=== PATIENT | male | born 1990 | race Caucasian/White ===

== ENCOUNTER 2021-11-24 07:33 | Inpatient (IN) ==
--- NOTE | 2021-11-10 11:08 | Anesthesiology Consultation ---
Date of Service November 10, 2021 Assessment & Plan (1) Encounter for pre-operative examination: COVID screening: Per assessment on 11/10: No known COVID-19 positive contacts or current COVID-19 related symptoms. Travel screen negative. Surgeon arranging preop COVID testing (Advised to go 11/22; location per surgeon). Awaiting results. Chart Review Chart Review: Acceptable Risk for Surgery and Patient seen in Pre Admission Testing Teaching & Discussion Pre-Anesthesia Teaching/Discussion Notes: Instructed NPO after midnight before surgery,except medications with 15 cc of water. Medication instructions provided according to the PAT guidelines. History Surgery Operation Date: 11/24/21 12:05 Proposed Procedures p C5-C7 Anterior Cervical Discectomy and Fusion, Possible C6 Corpectomy, Spinal Cord Monitoring - Talib Lua DO Height/Weight Height: 6 ft 2 in Weight: 86.3 kg Allergies Allergy/AdvReac Type Severity Reaction Status Date / Time No Known Allergies Allergy Verified 11/07/21 14:24 Medications Home Medications Medication Instructions Recorded Confirmed Last Taken No Known Home Medications 11/07/21 11/07/21 Unknown Past Medical History Medical History Degenerative cervical disc History of COVID-19 Dx 01/2021- no taste/smell, fatigue, weight loss > resolved [place]-Schlatter's disease Affected ankles/knees as child, did PT - no current problems Exercise / Class Metabolic Activity II 4-5 Yardwork/Stairs/Walk up hill Past Family History Family History Grandmother (Maternal) Crohn's disease Grandfather (Paternal) Crohn's disease Past Surgical History Surgical History History of colonoscopy Hx of inguinal hernia repair Age ~2 Hx of sinus surgery d/t polyps/blockage at teenager Hx of tonsillectomy Hx of wisdom tooth extraction Past Anesthesia History No Hx of Anesthesia Complications and No Family Hx of Anesthesia Complications History of PONV No Hx of PONV and No Hx of Motion Sickness Social History Smoking Status: Current every day smoker tobacco type: cigarettes Smoking cigarettes per day: 0.5pk/day Do You Dip or Chew Tobacco: No Hx Alcohol Use: Yes Alcohol type: beer alcohol intake frequency: 0-2 drinks per day (2 beers/days ) Hx Substance Use: No substance use type: does not use Review of Systems Patient denies chest pain, shortness of breath, dyspnea on exertion, fever, chills, cough, wheezing, palpitations. Physical Exam Vital Signs VITALS BP 146/98 P 66 TEMP 98.4 SP02 99%RA RESP 16 PHYSICAL Mildly decreased cervical extension range of motion. Full TMJ range of motion. TMD 4 finger breaths Mallampati Score 1 Dentition: intact Lungs: clear throughout to auscultation Cardiac: regular rate and rhythm, no murmurs noted Spine: normal Carotid arteries: negative bruit Extremities: no edema Lab Results Anesthesia Preop Results Results Anesthesia Widget: WBC 7.09 K/ul (4.8-10.8) 11/10/21 Hgb 15.0 g/dl (14.0-18.0) 11/10/21 Hct 44.3 % (40.1-51.0) 11/10/21 Plt 196 K/uL (130-400) 11/10/21 Na 139 mmol/L (136-145) 11/10/21 K 4.6 mmol/L (3.5-5.1) 11/10/21 Cl 106 mmol/L (98-107) 11/10/21 CO2 28 mmol/L (21-32) 11/10/21 BUN 11 mg/dl (6-23) 11/10/21 Creat 0.94 mg/dl (0.6-1.4) 11/10/21 Glucose Level 96 mg/dl (70-99(Fasting)) 11/10/21 PT 10.2 Seconds (9.0-12.0) 11/10/21 PTT 26.8 Seconds (21.0-31.0) 11/10/21 INR 1.0 (0.9-1.1) 11/10/21 Urine Color Yellow 11/10/21 Urine Appearance Clear (Clear) 11/10/21 Urine pH 5.5 (4.5-7.5) 11/10/21 Urine Specific [place] 1.014 (1.000-1.030) 11/10/21 Urine Protein Negative (Negative) 11/10/21 Urine Glucose (UA) Negative (Negative) 11/10/21 Urine Ketones Negative (Negative) 11/10/21 Urine Blood Negative (Negative) 11/10/21 Urine Nitrite Negative (Negative) 11/10/21 Urine Bilirubin Negative (Negative) 11/10/21 Urine Urobilinogen Negative (Negative) 11/10/21 Urine Leukocyte Esterase Negative (Negative) 11/10/21 Blood Type O Positive 11/10/21 Antibody Screen NEGATIVE 11/10/21 Testing Electrocardiogram Date: 11/10/21 SB at 54bpm. Otherwise normal ECG. Chest X-Ray Date: 11/10/21 Findings: + NAD
[~2021-11-24 07:33] MED LIST: ACETAMINOPHEN 500 MG TAB PO SCH; CeleBREX 200 MG CAP PO SCH; GABAPENTIN 900 MG DOSE PO SCH; LR 15ML/HR IV SCH; ceFAZolin 2000MG 2,000 MG/15 ML SYR IV SCH
[2021-11-24] MEDS ORDERED: fentaNYL citrate 100 MCG/2 ML VIAL ONE ×2 (08:40→12:20)
[2021-11-24] MEDS ORDERED: KETAMINE 50 MG/5 ML SYRINGE ONE (08:40)
[2021-11-24] MEDS ORDERED: MIDAZOLAM HCL 1 MG/ML 2ML VIAL ONE (08:40)
--- NOTE | 2021-11-24 09:04 | History & Physical Bridge Note ---
Date of Service November 24, 2021 History & Physical Bridge Note I have examined the patient, reviewed the History & Physical and in the interval since the performance of the History & Physical I have noted the following changes of clinical significance: no changes noted
--- NOTE | 2021-11-24 09:05 | History & Physical Report ---
Date of Service November 24, 2021 Assessment & Plan (1) Herniation of cervical intervertebral disc with radiculopathy: Plan: C5-C7 anterior cervical discectomy with fusion, possible C6 corpectomy History of Present Illness Chief Complaint: Neck and arm pain Primary Care Provider: NO PCP This is a 31-year-old male who presents with worsening neck and arm symptoms after failed course of nonoperative care is here for surgical invention. Allergies Allergy/AdvReac Type Severity Reaction Status Date / Time No Known Allergies Allergy Verified 11/24/21 08:09 Home Medications Medication Instructions Recorded Confirmed Type No Known Home Medications 11/07/21 11/24/21 History Past Med/Surg History Medical History Degenerative cervical disc History of COVID-19 Dx 01/2021- no taste/smell, fatigue, weight loss > resolved [place]-Schlatter's disease Affected ankles/knees as child, did PT - no current problems Surgical History History of colonoscopy Hx of inguinal hernia repair Age ~2 Hx of sinus surgery d/t polyps/blockage at teenager Hx of tonsillectomy Hx of wisdom tooth extraction Family History Grandmother (Maternal) Crohn's disease Grandfather (Paternal) Crohn's disease Social History Smoking Status: Current every day smoker Cigarettes Per Day: 0.5pk/day; Second Hand Exposure: No; Do You Dip or Chew Tobacco: No; Tobacco Cessation Education Requested by Patient: No Hx Alcohol Use: Yes Alcohol type: beer Hx Substance Use: No Preferred Language: [place] Communication Ability: Effective Celluloid Trimmer Required: No Beliefs That Will Affect Care: None Current Living Situation: Spouse Other Information That Helps Us Care for You: No Feels Safe at Home: Yes Safety Concerns: Feels Safe At This Time Assistive Devices: Glasses Physical Exam Physical Exam: Patient is alert and oriented Heart regular rhythm Lungs clear Results & Data Results & Data ([facility]) Vital Signs (Past 12 Hours) Vital Signs Temp Pulse Resp BP Pulse Ox O2 Del Method 11/24/21 08:08 36.3 C L 57 L 16 141/98 H 100 Room Air
[2021-11-24] MEDS ORDERED: ceFAZolin 330 MG/ML 1 GM VIAL ONE (09:28)
[2021-11-24] MEDS ORDERED: BUPIVACAINE/EPINEPHRINE 0.25% 1:200,000 30 ML VIAL ONE (09:28)
[2021-11-24] MEDS ORDERED: PROPOFOL IV EMULSION 10 MG/ML 20 ML VIAL IV ONE (09:30)
[2021-11-24] MEDS ORDERED: DEXAMETHASONE SOD INJ 4 MG/ML VIAL ONE (09:30)
[2021-11-24] MEDS ORDERED: ONDANSETRON INJ 2 MG/ML 2 ML VIAL ONE (09:30)
[2021-11-24] MEDS ORDERED: SUCCINYLCHOLINE CHLORIDE 20 MG/ML 10 ML VIAL IV ONE (09:30)
[2021-11-24] MEDS ORDERED: HYDROmorphone INJ 2 MG/ML SYR/VIAL ONE (10:05)
[2021-11-24] MEDS ORDERED: FLOSEAL HEMOSTATIC MATRIX 10ML TOP ONE (10:23)
--- NOTE | 2021-11-24 11:29 | Operative Report ---
Post Operative Report Pre & Post Diagnosis Operation Date: 11/24/21 09:05 Pre-Op Diagnosis: Cervical disc herniation with stenosis and radiculopathy Post-Op Diagnosis: Same I identified the patient and participated in the time-out.: Yes Procedure Operation Date: 11/24/21 09:05 Actual Procedures #1 anterior cervical corpectomy with bilateral foraminotomies C6. #2 anterior cervical arthrodesis C5-C7. #3 placement of 23 mm peek cage C5-C7. #4 placement locally harvested morselized autograft combined with I factor interbody cage. #5 application of lopez plate and screws from C5-C7. Surgeon Talib Lua, DO Judicial Registrar Mundo Moran Estimated Blood Loss 20 Findings Consistent with Post-Op Diagnosis Specimens None Indications This is a 31-year-old male who presents with evidence of significant cervical radiculopathy. Failing course of nonoperative care is here for surgical intervention. Description of Procedure Patient was met with identified informed consent obtained. Patient was then taken to the operative suite underwent ablation placed in the supine position the Martín table with head Akers hogshead opener. All bony prominences well- padded eyes inspected to ensure no external pressure placed upon them. This point the anterior cervical spine was prepped and draped in the normal sterile fashion. The assistance of fluoroscopy identified the C6 vertebral body. A transverse incision was placed along the right anterior aspect of the cervical spine overlying his region. Blunt dissection with the assistance of Bovie cautery was performed down to and exposing the anterior cervical spine from C5- C7. Self-retaining retractors placed. I then performed a complete discectomy of C5-C6 out to the uncovertebral joints bilaterally followed by C6-C7. [place] distracting pins were placed in C5 and C7 to distract across the C6 vertebral body. A complete corpectomy was then performed including removal of all posterior annular fibers longitudinal ligament and bilateral foraminotomies performed. After complete decompression a 23 mm peek cage filled with locally harvested morselized autograft and I factor was tapped in position. Distracting apparatus was removed and a lopez plate and screws applied with the assistance of fluoroscopy. The incision was then copiously irrigated explored to ensure no damage to surrounding structures remaining bleeding. 10 round LOUISE drain inserted. The incision then closed with 2 Vicryl in the fascia and a 4 Monocryl for fascial closure. Steri-Strip sterile dressings placed. Patient waken taken back in stable condition. Please note spinal cord monitoring was utilized at the procedure no changes noted. Lastly Mundo Moran was present out the entire surgeon while the patient positioning complex portions of the surgery and final skin closure. I attest to the content of the Intraoperative Record and any orders documented therein. Any exceptions are noted below.
[2021-11-24] MEDS ORDERED: ATROPINE SULFATE 0.1 MG/ML 10ML SYR IV PRN (12:37)
[2021-11-24] MEDS ORDERED: ePHEDrine sulfate 50 MG/ML AMP IV PRN (12:37)
[2021-11-24] MEDS ORDERED: HYDROmorphone INJ 2 MG/ML SYR/VIAL IV PRN (12:37)
[2021-11-24] MEDS ORDERED: PROMETHAZINE HCL 6.25 MG in SODIUM CHLORIDE 0.9% 50 ML IV PRN (12:37)
[2021-11-24] MEDS ORDERED: ONDANSETRON INJ 2 MG/ML 2 ML VIAL IV PRN ×2 (12:37→13:26)
[2021-11-24] MEDS ORDERED: fentaNYL citrate 100 MCG/2 ML VIAL IV PRN (12:37)
[2021-11-24] MEDS ORDERED: ACETAMINOPHEN 500 MG TAB PO PRN (13:26)
[2021-11-24] MEDS ORDERED: SOD PHOSPHATE/SOD BIPHOSPHATE ENEMA 132 ML BTL PR PRN (13:26)
[2021-11-24] MEDS ORDERED: hydrOXYzine HCl 25 MG TAB PO PRN (13:26)
[2021-11-24] MEDS ORDERED: ONDANSETRON 4 MG OD TAB PO PRN (13:26)
[2021-11-24] MEDS ORDERED: LORazepam 0.5 MG in SYRINGE 0.25 ML IV PRN ×2 (13:26→13:46)
[2021-11-24] MEDS ORDERED: FAMOTIDINE 20 MG TAB PO PRN (13:26)
[2021-11-24] MEDS ORDERED: bisacodyL 10 MG SUPP PR PRN (13:26)
[2021-11-24] MEDS ORDERED: PROMETHAZINE HCL 12.5 MG in SODIUM CHLORIDE 0.9% 50 ML IV PRN (13:26)
[2021-11-24] MEDS ORDERED: ACETAMINOPHEN 1,000 MG/100 ML VIAL IV PRN (13:26)
[2021-11-24] MEDS ORDERED: NALOXONE HCL 0.4 MG/1 ML VIAL/CARP IV PRN (13:26)
[2021-11-24] MEDS ORDERED: MAGNESIUM HYDROXIDE SUSP 30 ML UDC PO PRN (13:26)
[2021-11-24] MEDS ORDERED: ALUMINUM/MAGNESIUM SUSP 30 ML UDC PO PRN (13:26)
[2021-11-24] MEDS ORDERED: HYDROmorphone INJ 1 MG/ML SYRINGE IV PRN (13:26)
[2021-11-24] MEDS ORDERED: RACEPINEPHRINE 2.25% NEBU SOLN 0.5 ML VIAL INH PRN (13:26)
[2021-11-24] MEDS ORDERED: dexAMETHasone 8 MG in SYRINGE 0 ML IV PRN (13:26)
[2021-11-24] MEDS ORDERED: METOCLOPRAMIDE HCL INJ 5 MG/ML 2 ML VIAL IV PRN (13:26)
[2021-11-24] MEDS ORDERED: diphenhydrAMINE Capsule 25 MG CAP PO PRN (13:26)
[2021-11-24] MEDS ORDERED: LORazepam 0.5 MG TAB PO PRN (13:26)
[2021-11-24] MEDS: LACTATED RINGER'S 1,000 ML IV SCH ×2 (14:02→21:30)
--- NOTE | 2021-11-24 14:38 | Fluoroscopy Report ---
INTRAOPERATIVE RADIOGRAPHS CLINICAL HISTORY: C5 C7 spinal fusion. Fluoroscopy time: 15 seconds. FINDINGS: 3 spot fluoroscopic views of the cervical spine are presented. There is evidence of corpect estela of C6 with anterior fusion from C5-C7. The orthopedic hardware appears intact. A sponge is noted at the surgical site. An endotracheal tube is in place. A surgical drain is noted on the final image. IMPRESSION: Intraoperative images from cervical spinal fusion surgery as above. Electronically signed by: Eric Vazquez M.D. 11/24/2021 2:36 PM
--- NOTE | 2021-11-24 15:10 | Anesthesiology Progress Note ---
Date of Service November 24, 2021 Anesthesia Post Procedure Vital Signs Vital Signs: Temp Pulse Resp BP Pulse Ox Pulse Ox O2 Del Method 11/24/21 14:36 82 16 98 Nasal Cannula 11/24/21 14:33 36.5 C 60 18 142/96 H 100 Nasal Cannula 11/24/21 13:59 36.4 C L 63 18 144/97 H 100 Nasal Cannula 11/24/21 13:26 36.8 C 61 18 139/96 100 Nasal Cannula 11/24/21 13:26 100 11/24/21 13:00 36.3 C L 61 17 142/94 H 100 Room Air 11/24/21 12:50 63 9 L 135/104 H 100 Room Air 11/24/21 12:40 65 17 156/106 H 100 Room Air 11/24/21 12:30 50 L 12 140/101 H 100 Oxymask 11/24/21 12:20 51 L 12 151/108 H 100 Oxymask 11/24/21 12:10 59 L 12 144/106 H 100 Oxymask 11/24/21 12:00 69 12 138/110 H 100 Oxymask 11/24/21 11:51 35.9 C L 71 14 140/112 H 100 Oxymask 11/24/21 08:08 36.3 C L 57 L 16 141/98 H 100 Room Air O2 Del Method O2 Flow Rate O2 Flow Rate 11/24/21 14:36 2 11/24/21 14:33 2 11/24/21 13:59 2 11/24/21 13:26 2 11/24/21 13:26 Nasal Cannula 2 11/24/21 13:00 11/24/21 12:50 11/24/21 12:40 11/24/21 12:30 5 11/24/21 12:20 9 11/24/21 12:10 9 11/24/21 12:00 9 11/24/21 11:51 9 11/24/21 08:08 Pain Intensity Right Neck: Pain Intensity: 4 Neck: Pain Intensity: 4 Transfer of Care Handoff Completed per policy Notes Mental Status: alert / awake / arousable Patient Amnestic to Procedure: Yes Nausea / Vomiting: adequately controlled Pain: adequately controlled Airway Patency, RR, SpO2: stable & adequate BP & HR: stable & adequate Hydration State: stable & adequate Anesthetic Complications: no major complications apparent
[2021-11-24] MEDS: HYDROmorphone INJ 0.5 MG/0.5 ML SYR IV PRN ×2 (15:34→19:34)
[2021-11-24] MEDS: ceFAZolin 2000MG 2,000 MG/15 ML SYR IV SCH (17:44)
[2021-11-24] MEDS: oxyCODONE HCL IR 5 MG TAB (IMMEDIATE RELEASE) PO PRN ×2 (17:46→23:19)
[2021-11-24] MEDS ORDERED: DOCUSATE SODIUM/SENNA 50/8.6MG TAB PO SCH (21:00)
[2021-11-24] MEDS: traMADol HCL 50 MG TABLET PO PRN (21:29)
[2021-11-25] MEDS: ceFAZolin 2000MG 2,000 MG/15 ML SYR IV SCH (01:28)
[2021-11-25] MEDS: LACTATED RINGER'S 1,000 ML IV SCH (03:22)
[2021-11-25] MEDS: oxyCODONE HCL IR 5 MG TAB (IMMEDIATE RELEASE) PO PRN ×2 (03:33→09:53)
[2021-11-25] MEDS ORDERED: POLYETHYLENE (MIRALAX) 17 GM PACK PO SCH (06:00)
--- NOTE | 2021-11-25 10:31 | Discharge Summary ---
Date of Service November 25, 2021 Admission HPI Per Admitting Provider This is a 31-year-old male who presents with worsening neck and arm symptoms after failed course of nonoperative care is here for surgical invention. Principal Diagnosis Cervical radiculopathy Discharge Data Allergies Allergy/AdvReac Type Severity Reaction Status Date / Time No Known Allergies Allergy Verified 11/24/21 08:09 Procedures Performed Operation Date: 11/24/21 09:05 Actual Procedures p C6 Corpectomy, Spinal Cord Monitoring(Not Applicable) - Talib Lua DO Ordered Studies 11/24/21 09:05 FL cervical 2-3V Routine Hospital Course (1) Herniation of cervical intervertebral disc with radiculopathy: Patient went into cervical corpectomy tolerated this well second orthopedic for postoperative. Postop day 1 he was swallowing well. No hoarseness. Excellent strength testing. LOUISE drain decreasing appropriately. Subsequently discharged home. Discharge orders instructions from the chart for further review. Total Time Total Time Spent Total Time Spent (In Minutes): 20 minutes Discharge Plan Discharge Items Patient Disposition: Home - Self-Care Reason For Visit: Spinal Stenosis, Cervical Region Discharge Diagnosis: Cervical spinal stenosis Activity: As commented below Non-emergency contact: Primary Care Provider Call non-emergency contact if: you have any medication questions Follow-up/Referrals: PCP,NO [Primary Care Provider] - Diet: Regular Addtl Attending Provider Instructions: ACTIVITY RECOMMENDATIONS: SELF CARE INSTRUCTIONS AFTER CERVICAL FUSIONS 1. No smoking. Smoking drastically decreases the chance of a solid fusion. 2. No bending, lifting more than 5 pounds, or twisting (roll like a log when turning in bed). 3. You may shower 3 days after surgery. Thoroughly dry wound. Do not soak in the tub. 4. Cervical collar: Must be worn at all times including sleeping. You may remove the brace only to bath, eat and if you are sitting in a recliner. 5. Please walk as much as you can for exercise. Gradually increase the distance that you walk as your endurance increases. SPECIAL CARE INSTRUCTIONS: VERY IMPORTANT TO READ AND REVIEW A. Do not take any anti-inflammatory medications (i.e. Indocin, Advil, Aspirin, Naprosyn, Aleve, Motrin, etc.) as these may inhibit the chance of a solid fusion. Tylenol is okay to take. B. Your surgical incision has been closed with a cosmetic suture under the skin that will dissolve in about 6 weeks. In 14 days, you can use a pair of clean scissors and cut the suture that is left outside of the skin at the ends of your incision. C. Complications are uncommon, but please contact us if you have any signs or symptoms of: 1. wound infection (fever higher than 102.5 degrees F, redness, separation of wound, drainage, or increasing pain from the incision) 2. blood clots in legs (pain, swelling, redness and warmth in legs) 3. urinary tract infection (fever higher than 102.5 degrees, burning upon urination or increased frequency of urination) 4. nerve problems (inability to walk on your toes or heels, numbness, loss of bowel or bladder control) 5. any other symptoms that concern you. D. Please call the office at if you have any concerns or questions about your operation or recovery. MANAGING PAIN AFTER SPINAL SURGERY 1. Narcotic medication is intended for short-term use and will be provided for surgical pain. Surgical pain usually lasts for a period of 4-6 weeks. Narcotic medication includes Percocet, Vicodin, Darvocet, Tylenol #3 or Lortab. 2. Longer-term pain is more appropriately treated with non-narcotic medication such as Tylenol ES. 3. Muscle spasm is not appropriately treated with narcotics. Muscle relaxers such as Soma, Flexeril or Skelaxin can be used along with Tylenol ES. 4. Remember that we all live with some "aches and pains". This is not unusual or uncommon after an injury or as we get older. 5. We will provide appropriate medication within the normal guidelines of their prescribed use. We will also be very cautious and aware of potential abuse and extended duration of patients' medication needs. 6. Please allow 2-3 days to process refills. Prescriptions will not be mailed but must be picked up at the office. FOLLOW UP VISIT: Keep your scheduled follow-up appointment. Any questions, please call the office at . Pending Studies at Discharge: No Stand-Alone Forms: [facility], Smoking Cessation Medications and DC Order Prescriptions: New tramadol 50 mg tablet 50 mg PO Q6H PRN (Reason: pain, moderate) Qty: 20 0RF oxycodone 5 mg tablet 5 mg PO Q6H PRN (Reason: pain, severe) Qty: 20 0RF No Action No Known Home Medications Discharge Orders: Discharge Order (Routine); Ordered 11/25/21 Ordered By: Talib Lua Admission Data Admit Date/Time: 11/24/21 11:31 Attending Provider: Talib Lua Admit Provider: Talib Lua Primary Care Provider: PCP,ESTHELA
[2021-11-25] MEDS: traMADol HCL 50 MG TABLET PO PRN (11:57)
== END 2021-11-25 12:27 | disposition home or self-care (01) | DRG 473 ==
LOC: ASU 07:33 → 3E 11:31